=== PATIENT | female | born 1965 | race Hispanic/Latino ===

== ENCOUNTER 2024-02-04 20:24 | Emergency (ER) | payer OTHER ==
[~2024-02-04] VITALS: Ht 149.9 cm; Wt 72.6 kg
[~2024-02-04 20:24] MED LIST: ONDANSETRON ODT8 MG PO; PANTOPRAZOLE SO40 MG PO; Z.0.LOPID600 MG; Z.0.SYNTHROID75 MCG; [UNRECOGNIZED DRUG - OTHER]
[2024-02-04] MEDS: SODIUM CHLORIDE 0.9% 1000ML 1,000 ML IV STA (21:12)
[2024-02-04] MEDS: KETOROLAC TROMETHAMINE 30 MG/ML VIAL IV STA (21:12)
[2024-02-04] MEDS: ACETAMINOPHEN 325 MG TAB PO ONE (21:13)
[2024-02-04] MEDS ORDERED: COLCHICINE0.6 M1 PO (22:44)
[2024-02-04] MEDS ORDERED: HYDROCODON-ACE1 EA12 PO (22:46)
[2024-02-04 23:32] VITALS: PULSE 71; RESP 16; TEMP 98.9; O2SAT 95
== END 2024-02-04 23:36 | disposition home or self-care (01) ==
LOC: FSED 20:28
DX: R50.9 Fever, unspecified (principal); M10.9 Gout, unspecified; M79.674 Pain in right toe(s); E11.65 Type 2 diabetes mellitus with hyperglycemia; I10 Essential (primary) hypertension; E03.9 Hypothyroidism, unspecified; Z86.79 Personal history of other diseases of the circulatory system
CPT/HCPCS: 80053; 85025; 99284; J1885; J7030